=== PATIENT | male | born 1980 | race Caucasian/White ===

== ENCOUNTER 2024-09-30 20:06 | Emergency (ER) | payer OTHER, SELFPAY ==
[2024-09-30 20:09] VITALS: BP 150/90; PULSE 83; RESP 16; TEMP 37; O2SAT 100; BMI 26.1
--- NOTE | 2024-09-30 20:28 | ED_ITS ---
HPI - Skin/Abscess/Foreign Bdy General Chief complaint: Skin/Abscess/Foreign Body Stated complaint: insect bite Time Seen by Provider: 09/30/24 20:09 History of Present Illness HPI narrative: This 44-year-old male comes in with an infection on his right wrist. He states that he had some kind of insect bite or other injury to this area that occurred about 5 days ago. The area has become more reddened and is draining some serous type fluid. He is noticing a red streak going up his forearm part way. He does not report any fevers. He states that he is otherwise in good health. Related Data Home Medications ?Medication ?Instructions ?Recorded ?Confirmed No Known Home Medications 09/30/2409/10 Allergies Allergy/AdvReac Type Severity Reaction Status Date / Time No Known Drug Allergies Allergy Verified 09/30/24 20:13 Review of Systems Status of ROS: Reports: 10 or more systems reviewed and unremarkable except as noted in History and below Narrative: Constitutional: No fevers, no weight gain or loss. Eyes: No discharge. No vision changes. HENT: No congestion, no sore throat, no ear pain. Cardiovascular: No chest pain, no palpitations. Respiratory: No shortness of breath, no wheezes, no cough. Gastrointestinal: No abdominal pain, no vomiting, no diarrhea. Genitourinary: No dysuria, no hematuria. Musculoskeletal: Normal range of motion. Skin: No rashes, no pruritis. Boil on the right wrist as described above. Neurological: No dizziness, weakness, sensory change, speech change. Endo/Heme/Allergies: No bruising or bleeding. No polydipsia. Pysch: no suicidality, no anxiety, no insomnia. All other systems reviewed and are negative. Exam Narrative: Exam Narrative: Constitutional: Well-developed, well-nourished, no acute distress. HEENT: Normocephalic, atraumatic. Neck: Normal range of motion. Nontender. Supple. Heart: Intact distal pulses. Lungs: No chest discomfort. No wheezes, rhonchi, or rales. Abdomen: Nontender. Back: Normal range of motion. Extremities: Normal range of motion. The radial aspect of the right wrist has a boil that is draining some clear serous fluid. There is a red streak going part way up his right forearm. Skin: Intact. No rash. Warm. No erythema or pallor. Neurologic: No altered sensation. No weakness. Alert and oriented. Psychiatric: No suicidality. No anxiety or depression. No insomnia. Nursing notes and vitals signs are reviewed. Const: Vital Signs, click to edit/add: Vital Signs - 24 hr 09/30/24 20:09 Temperature 98.6 F Pulse Rate [Pulse Oximeter] 83 Respiratory Rate 16 Blood Pressure [Ri ght Upper Arm] 150/90 H Pulse Oximetry 100 Oxygen Delivery Me thod Room Air Course Vital Signs Vital signs: Initial Vital Signs Temperature 98.6 F 09/30/24 20:09 Temperature Source Temporal Artery Scan 09/30/24 20:09 Pulse Rate 83 09/30/24 20:09 Respiratory Rate 16 09/30/24 20:09 Blood Pressure 150/90 H 09/30/24 20:09 Blood Pressure Mean 110 H 09/30/24 20:09 Blood Pressure Position Sitting 09/30/24 20:09 Pulse Oximetry 100 09/30/24 20:09 Oxygen Delivery Method Room Air 09/30/24 20:09 Vital Signs Temperature 98.6 F 09/30/24 20:09 Pulse Rate 83 09/30/24 20:09 Respiratory Rate 16 09/30/24 20:09 Blood Pressure 150/90 H 09/30/24 20:09 Pulse Oximetry 100 09/30/24 20:09 Oxygen Delivery Method Room Air 09/30/24 20:09 Temperature 98.6 F 09/30/24 20:09 Pulse Rate 83 09/30/24 20:09 Respiratory Rate 16 09/30/24 20:09 Blood Pressure 150/90 H 09/30/24 20:09 Pulse Oximetry 100 09/30/24 20:09 Oxygen Delivery Method Room Air 09/30/24 20:09 MDM - Skin/Abscess/Foreign Bdy MDM Narrative Medical decision making narrative: This patient has a boil on his right wrist that is draining a small amount of clear serous fluid. I did inject a small amount of lidocaine and attempted to aspirate any purulent fluid but there was no such drainage. I recommended a 1 time injection of Rocephin along with prescription for Keflex. The patient stated that he preferred did take the oral medicine for now. I did describe signs and symptoms that indicate a need for return and re-evaluation. Discharge Plan Discharge Clinical Impression: Abscess of skin or subcutaneous tissue Patient Disposition: Home, Self-Care Condition: Unchanged Additional Instructions: Take medication as prescribed. Use [id number] medicines also as needed and directed. Follow up with MD return if symptoms are persistent or worsening. Prescriptions: No Action No Known Home Medications Stand Alone Forms: Pencil You In Info Instructions
[2024-09-30] MEDS: cephALEXin 500 MG CAPSULE PO (21:08)
== END 2024-09-30 21:09 | disposition home or self-care (01) ==
LOC: ED 20:54
PROVIDERS: Emergency Provider Emergency Medicine Emergency Medical Services
DX: L02.413 Cutaneous abscess of right upper limb (principal)
CPT/HCPCS: 99283; 99284; A9270